=== PATIENT | female | born 1955 | race Caucasian/White ===

== ENCOUNTER 2017-04-25 12:15 | Emergency (ER) | payer OTHER ==
[~2017-04-25] VITALS: Ht 152.4 cm; Wt 81.6 kg
[~2017-04-25 12:15] MED LIST: PROVENTIL4 MG
[2017-04-25] MEDS ORDERED: GLUMETZA1000 MG (12:30)
[2017-04-25] MEDS ORDERED: LITHIUM CARBON300 MG (12:31)
[2017-04-25] MEDS ORDERED: CLONAZEPAM0.5 MG (12:32)
== END 2017-04-25 21:01 | disposition home or self-care (01) ==
LOC: ER 12:15
DX: K58.8 Other irritable bowel syndrome (principal)

== ENCOUNTER 2018-12-06 18:02 | Emergency (ER) | payer OTHER ==
[~2018-12-06] VITALS: Ht 152.4 cm; Wt 84.4 kg
[~2018-12-06 18:02] MED LIST changes: +CLONAZEPAM0.5 MG; +GLUMETZA1000 MG; +LITHIUM CARBON300 MG
== END 2018-12-06 20:08 | disposition home or self-care (01) ==
LOC: ER 18:02
DX: S80.02XA Contusion of left knee, initial encounter (principal); S80.01XA Contusion of right knee, initial encounter; W18.09XA Striking against other object with subsequent fall, initial encounter; Y93.01 Activity, walking, marching and hiking; Y92.018 Other place in single-family (private) house as the place of occurrence of the external cause; Y99.8 Other external cause status

== ENCOUNTER 2019-11-26 11:40 | Emergency (ER) | payer OTHER ==
[~2019-11-26] VITALS: Ht 152.4 cm; Wt 78.9 kg
[2019-11-26] MEDS ORDERED: ZESTRIL2.5 MG (11:46)
[2019-11-26] MEDS ORDERED: DICLOFENAC POTA50 MG PO (17:28)
== END 2019-11-26 17:52 | disposition home or self-care (01) ==
LOC: ER 11:40
DX: S33.5XXA Sprain of ligaments of lumbar spine, initial encounter (principal); X50.0XXA Overexertion from strenuous movement or load, initial encounter; Y93.89 Activity, other specified; Y92.092 Bedroom in other non-institutional residence as the place of occurrence of the external cause; Y99.8 Other external cause status; E11.9 Type 2 diabetes mellitus without complications

== ENCOUNTER → 2021-10-01 08:00 | Outpatient (CLI) | payer OTHER ==
[~2021-10-01] VITALS: Ht 152.4 cm; Wt 81.6 kg
[~2021-10-01 08:00] MED LIST changes: +DICLOFENAC POTA50 MG PO; +PROAIR HFA8.5 GM IH; +ZESTRIL2.5 MG
== END | disposition home or self-care (01) ==
LOC: EDSTATUS 09-17 08:15 → ADM 07:00 → LAB 08:00 → SURH 10-05 07:00 → EDSTATUS 10-05 07:00 → SURH 10-05 11:00
PROVIDERS: ATTEND Orthopaedic Surgery Sports Medicine
DX: M17.11 Unilateral primary osteoarthritis, right knee (principal); Z01.818 Encounter for other preprocedural examination; Z01.812 Encounter for preprocedural laboratory examination

== ENCOUNTER 2022-07-01 07:15 | Inpatient (IN) | payer OTHER ==
[~2022-07-01] VITALS: Ht 152.4 cm; Wt 79.8 kg
[2022-07-07] MEDS ORDERED: INTEGRA PLUS C1 EACH PO (06:23)
[2022-07-07] MEDS ORDERED: TRAMADOL HCL50 MG PO (06:23)
[2022-07-07] MEDS ORDERED: XARELTO10 MG PO (06:23)
[2022-07-07] MEDS ORDERED: BACTRIM DS TAB1 EACH PO (06:23)
== END 2022-07-07 15:47 | DRG 468 ==
LOC: O/R 07-05 05:06 → SURH 07-05 05:06
PROVIDERS: ADMIT Orthopaedic Surgery Sports Medicine; ATTEND Orthopaedic Surgery Sports Medicine
PROC: 0SRC0J9 Replacement of Right Knee Joint with Synthetic Substitute, Cemented, Open Approach (ICD-10-PCS; 2022-07-05)
PROC: 0SPC0JZ Removal of Synthetic Substitute from Right Knee Joint, Open Approach (ICD-10-PCS; principal; 2022-07-05 07:00)
DX: T84.032A Mechanical loosening of internal right knee prosthetic joint, initial encounter (principal); Z96.651 Presence of right artificial knee joint; Z20.822 Contact with and (suspected) exposure to COVID-19

== ENCOUNTER 2022-09-30 12:21 | Outpatient (CLI) | payer OTHER ==
[~2022-09-30 12:21] MED LIST changes: +BACTRIM DS TAB1 EACH PO; +INTEGRA PLUS C1 EACH PO; +TRAMADOL HCL50 MG PO; +XARELTO10 MG PO
== END 2022-09-30 12:29 | disposition home or self-care (01) ==
LOC: RAD 12:21
PROVIDERS: ATTEND Orthopaedic Surgery Sports Medicine
DX: M17.11 Unilateral primary osteoarthritis, right knee (principal)

== ENCOUNTER 2022-11-29 14:22 | Outpatient (CLI) | payer OTHER | END 2022-11-29 14:24 | disposition home or self-care (01) | LOC: RAD 14:22 | PROVIDERS: ATTEND Orthopaedic Surgery Sports Medicine | DX: M17.11 Unilateral primary osteoarthritis, right knee (principal) ==

== ENCOUNTER 2023-01-31 11:11 | Emergency (ER) | payer OTHER ==
[~2023-01-31] VITALS: Ht 152.4 cm; Wt 81.6 kg
[2023-01-31] MEDS ORDERED: KETO10TA2 PO (16:19)
== END 2023-01-31 17:03 | disposition home or self-care (01) ==
LOC: ER 11:11
DX: S89.81XA Other specified injuries of right lower leg, initial encounter (principal); W18.39XA Other fall on same level, initial encounter; Y93.89 Activity, other specified; Y92.512 Supermarket, store or market as the place of occurrence of the external cause; S99.821A Other specified injuries of right foot, initial encounter; Z88.8 Allergy status to other drugs, medicaments and biological substances; I10 Essential (primary) hypertension; M79.7 Fibromyalgia; M19.90 Unspecified osteoarthritis, unspecified site; K57.30 Diverticulosis of large intestine without perforation or abscess without bleeding
CPT/HCPCS: 73560; 73610; 73630; 96372; 99284; J1885

== ENCOUNTER 2023-07-02 09:58 | Outpatient (CLI) | payer OTHER ==
[~2023-07-02 09:58] MED LIST changes: +KETO10TA2 PO
== END 2023-07-02 10:02 | disposition home or self-care (01) ==
LOC: RAD 09:58
PROVIDERS: ATTEND Orthopaedic Surgery Sports Medicine
DX: M17.11 Unilateral primary osteoarthritis, right knee (principal)

== ENCOUNTER 2023-11-22 15:12 | Outpatient (CLI) | payer OTHER | END 2023-11-22 15:17 | disposition home or self-care (01) | LOC: MAMO-SONO 15:12 | PROVIDERS: ATTEND Internal Medicine | DX: Z12.31 Encounter for screening mammogram for malignant neoplasm of breast (principal) ==

== ENCOUNTER 2024-03-10 11:51 | Emergency (ER) | payer OTHER ==
[~2024-03-10] VITALS: Ht 152.4 cm; Wt 83.5 kg
[2024-03-10] MEDS ORDERED: METFORMIN HCL500 M3 (12:27)
[2024-03-10] MEDS ORDERED: ESKALITH300 MG PO (12:27)
[2024-03-10] MEDS ORDERED: EFFEXOR (12:28)
[2024-03-10 16:43] LABS: HEMOGLOBIN 13.3 g/dL (12.0-15.00); MEAN CELL VOLUME 86.8 fL (80.00-100.00); MEAN CORPUSCULAR HEMOGLOBIN 28.9 pg (27.00-32.0); MEAN CORPUSCULAR HGB CONC 33.3 g/dl (32.0-36.0); PLATELET COUNT 239 K/uL (150-450); RED BLOOD COUNT 4.61 M/uL (4.00-6.00)
[2024-03-10 16:53] LABS: CALCIUM 10.3 mg/dL (8.5-10.1); CREATININE SERUM 0.82 mg/dL (0.55-1.02); GFR 69.12; POTASSIUM 4.74 mEq/L (3.5-5.1)
== END 2024-03-10 22:33 | disposition home or self-care (01) ==
LOC: ER 11:53
PROVIDERS: General Practice
DX: R10.9 Unspecified abdominal pain (principal); J45.909 Unspecified asthma, uncomplicated; M19.90 Unspecified osteoarthritis, unspecified site; K59.00 Constipation, unspecified; K21.9 Gastro-esophageal reflux disease without esophagitis; E11.9 Type 2 diabetes mellitus without complications; Z79.84 Long term (current) use of oral hypoglycemic drugs; Z88.8 Allergy status to other drugs, medicaments and biological substances; Z93.3 Colostomy status
CPT/HCPCS: 36415; 74177; 99284; Q9965